=== PATIENT | male | born 1955 | race Caucasian/White ===

== ENCOUNTER 2023-12-15 06:54 | Day surgery (SDC) | payer MEDICARE, BC ==
[2023-12-15] MEDS: Sodium Chloride 0.9% 1,000 ML IV SCH (07:24)
[2023-12-15] MEDS ORDERED: Propofol 200 MG/20 ML SDV ONE (07:26)
[2023-12-15] MEDS ORDERED: Midazolam 1 MG/ML 2 ML SDV ONE (07:26)
[2023-12-15] MEDS ORDERED: fentaNYL 50 MCG/ML SDV ONE (07:26)
[2023-12-15 09:39] VITALS: BP 132/80; PULSE 64
== END 2023-12-15 09:46 | disposition home or self-care (01) ==
LOC: JP.SDS 06:54
PROVIDERS: ATTEND Surgery
DX: K21.00 Gastro-esophageal reflux disease with esophagitis, without bleeding (principal); K22.89 Other specified disease of esophagus; Z88.0 Allergy status to penicillin
CPT/HCPCS: 88305; J2250; J2704; J3010; J7030

== ENCOUNTER 2024-01-01 07:24 | Emergency (ER) | payer MEDICARE, BC ==
[2024-01-01 07:39] VITALS: BP 161/89; PULSE 81
[2024-01-01 08:18] LABS: APPEARANCE,URINE SLIGHTLY CLOUDY (CLEAR); COLOR,URINE YELLOW (YELLOW)
[2024-01-01 08:19] LABS: BILIRUBIN,URINE NEGATIVE (NEGATIVE); GLUCOSE,URINE NEGATIVE (NEGATIVE); KETONES,URINE NEGATIVE (NEGATIVE); LEUKOCYTE ESTERASE,URINE NEGATIVE (NEGATIVE); NITRITE,URINE NEGATIVE (NEGATIVE); OCCULT BLOOD,URINE NEGATIVE (NEGATIVE); PROTEIN,URINE NEGATIVE (NEGATIVE); UROBILINOGEN,URINE 0.2 EU/dL (0.2-1.0)
[2024-01-01 08:23] LABS: BASOPHILS ABSOLUTE AUTO 0.04 K/uL (0.00-0.10); BASOPHILS PERCENT AUTO 0.7 % (0.1-1.3); EOSINOPHILS ABSOLUTE AUTO 0.13 K/uL (0.00-0.40); EOSINOPHILS PERCENT AUTO 2.2 % (0.0-5.4); HEMATOCRIT 42.7 % (38.4-49.7); HEMOGLOBIN 14.6 g/dL (12.9-16.9); IMMATURE GRAN PERCENT AUTO 0.2 % (0.0-0.7); LYMPHOCYTES ABSOLUTE AUTO 1.19 K/uL (0.8-3.3); MEAN CORPUSCULAR HEMOGLOBIN 29.7 pg (31.6-35.5); MEAN CORPUSCULAR HGB CONC 34.2 g/dL (31.6-35.5); MONOCYTES ABSOLUTE AUTO 0.77 K/uL (0.20-0.90); NEUTROPHILS PERCENT AUTO 63.9 % (40.0-78.1); PLATELET COUNT,PLT 235 K/uL (130-375); RED BLOOD CELL COUNT 4.91 M/uL (4.14-5.76); WHITE BLOOD CELL COUNT,WBC 5.9 K/uL (3.2-11.0)
[2024-01-01 08:24] LABS: BASE EXCESS VENOUS 1.6 mm/L; BICARBONATE,VENOUS 25.8 mmol/L; CARBOXYHEMOGLOBIN 1.8 % (0.0-1.6); METHEMOGLOBIN 0.6 %; OXYHEMOGLOBIN 73.2 %; PCO2 VENOUS 41.2 mm/Hg; PH,VENOUS 7.413 (7.350-7.450); PO2 VENOUS 41.9 mm/Hg; TOTAL HEMOGLOBIN 15.1 g/dL (13.5-18.0)
[2024-01-01 08:26] LABS: IMMATURE GRAN ABSOLUTE AUTO 0.01 K/uL (0.00-0.23)
[2024-01-01 08:28] LABS: EPITHELIAL CELLS,URINE RARE; RBC,URINE NOT SEEN (0-5); WBC,URINE NOT SEEN (0-5)
[2024-01-01 08:29] LABS: AMORPHOUS SEDIMENT,URINE RARE; BACTERIA,URINE NOT SEEN; MUCUS,URINE NOT SEEN
[2024-01-01 08:43] LABS: INR 1.1; PROTHROMBIN TIME 10.8 sec (9.2-10.6)
[2024-01-01 08:50] LABS: A/G RATIO 1.2 (1.2-2.2); ALANINE AMINOTRANSFERASE,ALT 25 U/L (12-78); ALBUMIN 3.8 g/dL (3.4-5.0); ALKALINE PHOSPHATASE 89 U/L (46-116); ASPARTATE AMNIOTRANSFERASE,AST 20 U/L (15-37); BILIRUBIN TOTAL 1.4 mg/dL (0.2-1.0); BLOOD UREA NITROGEN,BUN 17 mg/dL (7-18); CALCIUM 9.6 mg/dL (8.5-10.1); CARBON DIOXIDE,CO2 26 mmol/L (21-32); CHLORIDE,CL 103 mmol/L (100-108); CREATININE 1.1 mg/dL (0.8-1.3); EST CRCL DRUG DOSING (CG) 75.26 mL/min; ESTIMATED GFR 74 mL/min (>60); GLUCOSE RANDOM 95 mg/dL (74-106); POTASSIUM,K 3.8 mmol/L (3.6-5.2); PROTEIN TOTAL,TP 7.1 g/dL (6.4-8.2); SODIUM,NA 137 mmol/L (140-148); TROPONIN I HIGH SENSITIVITY 4.9 pg/mL (<=60.3)
[2024-01-01 08:53] LABS: ANION GAP 11.8 mmol/L (5.0-14.0)
[2024-01-01 09:29] LABS: CORONAVIRUS COVID-19 NAA NEGATIVE (NEGATIVE); INFLUENZA A NAA NEGATIVE (NEGATIVE); INFLUENZA B NAA NEGATIVE (NEGATIVE); RESPIRATORY SYNCYTIAL VIR NAA NEGATIVE (NEGATIVE)
[2024-01-01] MEDS: Iopamidol 755 Mg/ML 100 ML Bottle IV SCH (10:02)
[2024-01-01] MEDS: Sodium Chloride 0.9% 100 ML IV SCH (10:02)
[2024-01-01] MEDS: Sodium Chloride 0.9% 10 ML Syringe FLUSH PRN (10:02)
== END 2024-01-01 11:09 | disposition home or self-care (01) ==
LOC: JP.ED 07:24
DX: R07.89 Other chest pain (principal); R91.1 Solitary pulmonary nodule; E78.00 Pure hypercholesterolemia, unspecified; K21.9 Gastro-esophageal reflux disease without esophagitis; Z88.0 Allergy status to penicillin; Z79.82 Long term (current) use of aspirin; Z79.899 Other long term (current) drug therapy; Z86.16 Personal history of COVID-19
CPT/HCPCS: 0241U; 36415; 71275; 76705; 80053; 81001; 82803; 83605; 84145; 84484; 85025; 85379; 85610; 99285; J3490; Q9967

== ENCOUNTER → 2025-01-25 | Day surgery (SDC) | payer MEDICARE, BC ==
[~2025-01-25] MED LIST: Midazolam 1 MG/ML 2 ML SDV ONE; Propofol 200 MG/20 ML SDV ONE; fentaNYL 50 MCG/ML SDV ONE
[2025-01-25] MEDS: Lactated Ringers 1,000 ML IV SCH (08:32)
[2025-01-25 09:45] VITALS: BP 121/74; PULSE 57
== END ==
LOC: JP.SDS 07:37
PROVIDERS: ATTEND Family Medicine
DX: Z12.11 Encounter for screening for malignant neoplasm of colon (principal); R19.5 Other fecal abnormalities; K62.1 Rectal polyp; K21.9 Gastro-esophageal reflux disease without esophagitis; E78.5 Hyperlipidemia, unspecified; Z88.0 Allergy status to penicillin
CPT/HCPCS: 00811; 45380; 88305; J2250; J2704; J3010; J7120